=== PATIENT | female | born 1960 | race Caucasian/White ===

== ENCOUNTER → 2016-11-26 10:26 | Outpatient (CLI) | payer BC ==
[2016-11-26 10:59] LABS: BASOPHILS 0.7 % (0-2); EOSINOPHILS 3.2 % (0-7); HEMATOCRIT 38.6 % (36.0-48.0); HEMOGLOBIN 12.6 g/dL (12-16); IMMATURE GRANULOCYTES 0.2 % (0-5); LYMPHOCYTES 23.7 % (15-50); MCH 27.7 pg (26.0-34.0); MCHC 32.6 g/dL (31.0-37.0); MCV 84.8 fL (80.0-100.0); MEAN PLATELET VOLUME 9.1 fL (7.4-10.4); MONOCYTES 5.8 % (2-11); NEUTROPHILS 66.4 % (40-80); RBC 4.55 10x6/uL (4.00-5.40); RDW 13.4 % (11.5-14.5); WBC 5.9 10x3/uL (4.8-10.8)
[2016-11-26 11:04] LABS: PLATELET COUNT 298 10x3/uL (130-400)
[2016-11-26 11:29] LABS: ALBUMIN 3.8 g/dL (3.4-5.0); ALKALINE PHOSPHATASE 67 U/L (46-116); ALT (SGPT) 22 U/L (10-68); BILIRUBIN - TOTAL 0.56 mg/dL (0.2-1.3); CALC OSMOLALITY 282 mosm/kg (275-300); CALCIUM 9.2 mg/dL (8.5-10.1); CARBON DIOXIDE 28.5 mmol/L (21.0-32.0); CHLORIDE - SERUM 105 mmol/L (98-107); CHOL - HDL RATIO 2.2 ratio (2.3-4.1); CHOLESTEROL, TOTAL 197 mg/dL (0-200); CREATININE - SERUM 0.7 mg/dL (0.6-1.3); GLUCOSE 95 mg/dL (74-106); HDL CHOLESTEROL 89 mg/dL (32-96); LDL CHOLESTEROL 92 mg/dL (0-100); POTASSIUM - SERUM 3.9 mmol/L (3.5-5.1); PROTEIN - SERUM 7.6 g/dL (6.4-8.2); SODIUM 142 mmol/L (136-145); THYROID STIMULATING HORMONE 1.86 uIU/mL (0.36-3.74); UREA NITROGEN 13 mg/dL (7-18); eGFR NON AFRICAN AMERICAN > 90 mL/min (90-120)
[2016-11-26 11:46] LABS: TRIGLYCERIDE 82 mg/dL (30-200)
[2016-11-26 12:05] LABS: ERYTHROCYTE SEDIMENTATION RATE 20 mm/hr (0-30)
== END | disposition home or self-care (01) ==
LOC: D.LAB 10:26
PROVIDERS: Family Medicine
DX: Z00.00 Encounter for general adult medical examination without abnormal findings (principal); N95.1 Menopausal and female climacteric states; R53.83 Other fatigue; I77.9 Disorder of arteries and arterioles, unspecified

== ENCOUNTER → 2018-03-22 08:54 | Outpatient (CLI) | payer BC ==
[2018-03-22 09:36] LABS: BASOPHILS 0.5 % (0-2); EOSINOPHILS 2.8 % (0-7); HEMATOCRIT 38.5 % (36.0-48.0); HEMOGLOBIN 12.6 g/dL (12-16); IMMATURE GRANULOCYTES 0.3 % (0-5); LYMPHOCYTES 17.5 % (15-50); MCH 27.8 pg (26.0-34.0); MCHC 32.7 g/dL (31.0-37.0); MEAN PLATELET VOLUME 8.6 fL (7.4-10.4); MONOCYTES 7.5 % (2-11); NEUTROPHILS 71.4 % (40-80); PLATELET COUNT 246 10x3/uL (130-400); RBC 4.53 10x6/uL (4.00-5.40); RDW 13.5 % (11.5-14.5); WBC 6.5 10x3/uL (4.8-10.8)
[2018-03-22 10:02] LABS: ALBUMIN 3.9 g/dL (3.4-5.0); ALKALINE PHOSPHATASE 71 U/L (46-116); ALT (SGPT) 24 U/L (10-68); BILIRUBIN - TOTAL 0.58 mg/dL (0.2-1.3); CALC OSMOLALITY 277 mosm/kg (275-300); CALCIUM 8.8 mg/dL (8.5-10.1); CHLORIDE - SERUM 104 mmol/L (98-107); CHOL - HDL RATIO 2.3 ratio (2.3-4.1); CHOLESTEROL, TOTAL 230 mg/dL (0-200); CREATININE - SERUM 0.8 mg/dL (0.6-1.3); GLUCOSE 104 mg/dL (74-106); HDL CHOLESTEROL 100 mg/dL (32-96); LDL CHOLESTEROL 122 mg/dL (0-100); LDL-HDL RATIO 1.2 ratio (1.5-3.5); POTASSIUM - SERUM 3.7 mmol/L (3.5-5.1); PROTEIN - SERUM 7.3 g/dL (6.4-8.2); SODIUM 140 mmol/L (136-145); THYROID STIMULATING HORMONE 2.21 uIU/mL (0.36-3.74); TRIGLYCERIDE 44 mg/dL (30-200); UREA NITROGEN 10 mg/dL (7-18); eGFR NON AFRICAN AMERICAN 78 mL/min (90-120)
== END | disposition home or self-care (01) ==
LOC: D.LAB 08:54
PROVIDERS: Family Medicine
DX: Z00.00 Encounter for general adult medical examination without abnormal findings (principal); E53.8 Deficiency of other specified B group vitamins; E66.9 Obesity, unspecified; G89.29 Other chronic pain

== ENCOUNTER → 2018-07-02 15:31 | Outpatient (CLI) | payer BC | END | disposition home or self-care (01) | LOC: D.CT 15:31 | DX: I25.10 Atherosclerotic heart disease of native coronary artery without angina pectoris (principal) ==

== ENCOUNTER 2018-12-27 08:00 | Outpatient (CLI) | payer BC | END 2018-12-27 23:59 | disposition home or self-care (01) | LOC: D.MAMMO 08:00 | PROVIDERS: ATTEND Nurse Practitioner Family | DX: Z12.31 Encounter for screening mammogram for malignant neoplasm of breast (principal) ==